=== PATIENT | male | born 1975 | race Caucasian/White ===

== ENCOUNTER 2017-02-02 01:47 | Emergency (ER) | payer MEDICARE, MEDICAID ==
[~2017-02-02] VITALS: Ht 180.3 cm; Wt 83.8 kg
[2017-02-02] MEDS ORDERED: HYDR1TAB16 PO (02:06)
[2017-02-02] MEDS ORDERED: SODIUM CHLORIDE 0.9% 1,000 ML IV ONE (03:29)
[2017-02-02] MEDS ORDERED: SODIUM CHLORIDE FLUSH 10ML SYR IVF ONE (03:30)
[2017-02-02] MEDS ORDERED: ACETAMINOPHEN 500 MG TABLET ONE (04:17)
[2017-02-02] MEDS ORDERED: ACETAMINOPHEN 325 MG TABLET PO ONE (04:30)
[2017-02-02] MEDS ORDERED: ACETAMINOPHEN 500 MG TABLET PO ONE (04:30)
[2017-02-02 04:41] LABS: BLOOD UREA NITROGEN 14 mg/dL (7-18)
[2017-02-02 04:44] LABS: DAU SCREEN DISCLAIMER
[2017-02-02 05:13] VITALS: BP 123/80
== END 2017-02-02 05:33 | disposition home or self-care (01) ==
LOC: ED 03:52
DX: S00.03XA Contusion of scalp, initial encounter (principal); S00.11XA Contusion of right eyelid and periocular area, initial encounter; S00.81XA Abrasion of other part of head, initial encounter; F15.10 Other stimulant abuse, uncomplicated; Y09 Assault by unspecified means; Y93.89 Activity, other specified; Y92.89 Other specified places as the place of occurrence of the external cause; Y99.9 Unspecified external cause status
CPT/HCPCS: 36415; 70450; 70486; 80048; 80307; 82040; 85025; 85610; 85730; 96360; 99291; J7030

== ENCOUNTER 2017-05-07 17:25 | Emergency (ER) | payer MEDICAID, MEDICARE ==
[~2017-05-07] VITALS: Ht 180.3 cm; Wt 81.5 kg
[~2017-05-07 17:25] MED LIST: HYDR1TAB16 PO
[2017-05-07 17:26] VITALS: BP 117/80
[2017-05-07] MEDS ORDERED: KETOROLAC 30 MG/1 ML ONE (17:54)
[2017-05-07] MEDS ORDERED: KETOROLAC 30 MG/1 ML IM ONE (18:00)
== END 2017-05-07 18:41 | disposition home or self-care (01) ==
LOC: ED 18:15
DX: M79.622 Pain in left upper arm (principal)
CPT/HCPCS: 73060; 93005; 96372; 99284; J1885

== ENCOUNTER 2017-10-16 19:44 | Emergency (ER) | payer MEDICARE, MEDICAID ==
[~2017-10-16] VITALS: Ht 180.3 cm; Wt 83.9 kg
[2017-10-16 19:52] VITALS: BP 120/80
[2017-10-16] MEDS ORDERED: KETOROLAC 30 MG/1 ML ONE (21:19)
[2017-10-16] MEDS ORDERED: KETOROLAC 30 MG/1 ML IM ONE (21:30)
== END 2017-10-16 21:49 | disposition home or self-care (01) ==
LOC: ED 21:43
DX: M75.32 Calcific tendinitis of left shoulder (principal)
CPT/HCPCS: 73030; 96372; 99284; J1885

== ENCOUNTER 2018-06-17 21:50 | Emergency (ER) | payer MEDICARE, MEDICAID ==
[~2018-06-17] VITALS: Ht 177.8 cm; Wt 81.9 kg
[2018-06-17 21:52] VITALS: BP 120/85
== END 2018-06-17 23:29 | disposition home or self-care (01) ==
LOC: ED 23:23
DX: M71.21 Synovial cyst of popliteal space [Baker], right knee (principal); F17.200 Nicotine dependence, unspecified, uncomplicated
CPT/HCPCS: 99284